=== PATIENT | female | born 1970 | race Caucasian/White ===

== ENCOUNTER 2017-06-07 11:19 | Emergency (ER) | payer OTHER ==
[2017-06-07 11:32] VITALS: BP 141/89; PULSE 119; TEMP 98.2; BMI 37.5
[2017-06-07 13:12] LABS: HCG,QUALITATIVE URINE NEGATIVE; URINE APPEARANCE CLEAR; URINE BILIRUBIN NEGATIVE (NEGATIVE); URINE BLOOD NEGATIVE (NEGATIVE); URINE COLOR STRAW; URINE GLUCOSE (UA) NEGATIVE (NEGATIVE); URINE KETONE 1+ (NEGATIVE); URINE LEUK ESTERASE NEGATIVE (NEGATIVE); URINE NITRITE NEGATIVE (NEGATIVE); URINE PROTEIN NEGATIVE (NEGATIVE); URINE UROBILINOGEN NEGATIVE mg/dL (0.2-1.0)
[2017-06-07] MEDS ORDERED: KETOROLAC TROMETHAMINE 60 MG/2 ML VIAL IM ONE (13:21)
[2017-06-07] MEDS ORDERED: KETOROLAC TROMETHAMINE 60 MG/2 ML VIAL ONE (13:22)
--- NOTE | 2017-06-07 13:22 | PDOC ---
History of Present Illness - General Chief Complaint: Pain Stated Complaint: FALL/ RT ARM AND ABD PAIN Time Seen by Provider: 06/07/17 12:33 History Source: Patient Exam Limitations: No Limitations - History of Present Illness Initial Comments: 06/07/17 13:35 CHIEF COMPLAINT: Mechanical fall yesterday, generalized right arm pain, back pain, left lower abdominal discomfort HISTORY OF PRESENT ILLNESS: Patient is a 46-year-old female, history of anxiety reports she was walking down a hill yesterday and at the bottom of the hill was a step, as she was walking down the step she fell onto her buttocks denies hitting her abdomen, denies hitting her back, denies hitting her head. After the incident was immediately ambulatory, hours later felt pain to old surgical site from 2013 where she had hernia repair to lower abdomen.. Feels that she may have pulled the mesh. Patient complaining of buttock pain, and generalized right arm pain. Denies any hematuria, no nausea vomiting or diarrhea. PMH: [Anxiety] MEDS:[ Klonopin] ALLERGIES: [None] REVIEW OF SYSTEMS: GENERAL/CONSTITUTIONAL: Awake alert and oriented HEAD, EYES, EARS, NOSE AND THROAT: No change in vision. No facial edema, no bruising. NO active bleeding. Nares intact. RESPIRATORY: No cough, wheezing, or hemoptysis. CARDIAC: Denies chest pain, no shortness of breathe. MUSCULOSKELETAL: No spinal point tenderness, Good ROM to all four extremities. Pain reproducible to right arm, good range of motion to same NO CVA tenderness. [No] lateral neck pain. GI/: Denies abdominal pain, no nausea or vomiting, no bloody stool, no Hematuria. SKIN : No erythema or bruising noted. No abrasion or lacerations. NEUROLOGIC: No loss of consciousness, no numbness or tingling. PHYSICAL EXAM: GENERAL: Awake and alert and oriented x3. EYES: The pupils are equal, round, and reactive to light, with clear, conjunctiva. Good extraocular movement. No nystagmus NOSE: No nasal trauma . Midface stable MOUTH: Teeth intact. EARS: The ear canals and tympanic membranes are normal without trauma. No drainage. NECK: No Lower cervical C-spine tenderness, no pain with chin to chest. CHEST: The lungs are clear without crackles, or wheezes. No subcutaneous emphysema. No crepitus. HEART: Heart is regular rhythm, with normal S1 and S2, no murmurs. ABDOMEN: The abdomen is soft and nontender with normal bowel sounds. There is no guarding or rebound. No bruising MUSCULOSKELETAL: No spinal point tenderness. No bruising or erythema. Pelvis stable. Right arm with no bruising, no deformity, good range of motion. Pain is muscular and reproducible RECTAL: Patient refused. EXTREMITIES: Extremities are normal. No visible traumatic injury. NEUROLOGICAL:Mental status: The patient is oriented x3. No Generalized headache , Romberg [-] Cranial nerves: Cranial nerves II through XII are intact Motor: The upper extremities are 5 over 5 in all muscle groups. The lower extremities are 5 over 5 in all muscle groups. Sensation: Sensation is intact to light touch throughout. Cerebellar: Nhrihs-[id number] is normal in both upper extremities. Heel-knee- bautista is normal in both lower extremities. Reflexes: 2+ and symmetric in the upper and lower extremities. Gait: Normal. Heel and toe walking are normal. Tandem gait is normal. SKIN: Without edema, erythema or bruising. No abrasions or lacerations. Past History - Past Medical History Allergies/Adverse Reactions: Allergies Allergy/AdvReac Type Severity Reaction Status Date / Time No Known Allergies Allergy Verified 06/07/17 11:32 Home Medications: Ambulatory Orders Clonazepam [Klonopin] 1 mg PO PRN PRN 06/07/17 Naproxen [Naprosyn -] 500 mg PO BID #20 tablet 06/07/17 COPD: No - Surgical History Abdominal Surgery: Yes (HERNIA REPAIR) - Suicide/Smoking/Psychosocial Hx Smoking History: Never smoked Hx Alcohol Use: No Drug/Substance Use Hx: No Substance Use Type: None *Physical Exam - Vital Signs Last Vital Signs Temp Pulse Resp BP Pulse Ox 98.2 F 119 H 20 141/89 98 06/07/17 11:29 06/07/17 11:29 06/07/17 11:29 06/07/17 11:29 06/07/17 11:29 ED Treatment Course - ADDITIONAL ORDERS Additional order review: Laboratory Results 06/07/17 13:03 Urine HCG, Qual Negative Medical Decision Making - Medical Decision Making 06/07/17 13:39 A/P: Patient here for evaluation after mechanical fall yesterday where she fell onto her buttock, there is no direct spinal point tenderness no sacral pain pain as generalized to lower back and reproducible on palpation to skin. There is no bruising, no erythema edema or abrasions or lacerations. Patient also with pain reproducible to right arm, related to musculature feels that pain is related to her attempting to get herself off the ground. Is here today because she is concerned she may have ripped a mashed from hernia repair to lower abdomen. Area is soft, and nontender. She was concerned because there was aligned her lower abdomen that was consistent with the stretch mercedes. I will send urinalysis, rule out blood in urine, urine and will give Toradol once the is negative. Will reevaluate pain level. 06/07/17 14:49 urinalysis is negative. After the Toradol patient reports full resolution of pain. Will DC patient on Naprosyn. Abdomen reassessed, there is no pain or discomfort. I discussed the physical exam findings, ancillary test results and final diagnoses with the patient. I answered all of the patient's questions. The patient was satisfied with the care received and felt comfortable with the discharge plan and treatment plan. The patient will call to arrange follow-up and will return to the Emergency Department with any new, persistent or worsening symptoms. *DC/Admit/Observation/Transfer Diagnosis at time of Disposition: Musculoskeletal pain Fall Qualifiers: Encounter type: initial encounter Qualified Code(s): W19.XXXA - Unspecified fall, initial encounter - Discharge Dispostion Disposition: HOME Condition at time of disposition: Stable Admit: No - Prescriptions Prescriptions: Naproxen [Naprosyn -] 500 mg PO BID #20 tablet - Referrals Referrals: [facility] [Provider Group] - Patient Instructions Additional Instructions: 1. Please return to the emergency department with any numbness, tingling, weakness, numbness or tingling to groin or legs, or loss of bowel or bladder function. 2. Use pain medication as ordered. 3. Please is to followup in the office of PMD for evaluation within a week if no improvement. 4. Ice or heat 5. Refrain from lifting anything above 10 pounds, until pain resolved. - Post Discharge Activity Forms/Work/School Notes: Back to Work
== END 2017-06-07 14:59 | disposition home or self-care (01) ==
LOC: JER 11:19
PROC: 3E0233Z Introduction of Anti-inflammatory into Muscle, Percutaneous Approach (ICD-10-PCS; principal; 2017-06-07)
DX: M79.1 Myalgia (principal); W18.39XA Other fall on same level, initial encounter; Y93.89 Activity, other specified; Y92.9 Unspecified place or not applicable
CPT/HCPCS: 81003; 84703; 99283-25